=== PATIENT | female | born 1955 ===

== ENCOUNTER 2020-09-09 11:21 | Emergency (ER) | payer MEDICARE, OTHER ==
--- NOTE | 2020-09-09 11:30 | EDM.PDOC ---
ED HPI GENERAL MEDICAL PROBLEM - General Chief Complaint: Abdominal Pain Stated Complaint: EMS ARRIVAL Time Seen by Provider: 09/09/20 11:28 Source of Information: Reports: Patient History Limitations: Reports: No Limitations - History of Present Illness INITIAL COMMENTS - FREE TEXT/NARRATIVE: HISTORY AND PHYSICAL: History of present illness: Patient is a 64-year-old female who presents to the emergency room with complaints of low abdominal pain intermittently for the past 2 months. She states she has been trying to eliminate certain foods and activities to see if this would help eliminate her pain although has not been successful. This morning the pain is more persistent in the right lower quadrant and radiates to her flank area. She has also had some dysuria and constipation. States she had a small bowel movement yesterday. She also has some associated nausea without vomiting. Patient denies any fever, chills, headache, change in vision, syncope or near syncope. Denies any chest pain, shortness of breath or cough. Has not noted any blood in urine or stool. Patient has been eating and drinking appropriately. EMS was called to scene: She was given 100mcg of Fentyl PULMONARY PHYSICIAN. Past medical history of hypothyroidism, glaucoma, and gastric lapband. PCP: Dr Arredondo at [facility]. Review of systems: As per history of present illness and below otherwise all systems reviewed and negative. Past medical history: As per history of present illness and as reviewed below otherwise noncontributory. Surgical history: As per history of present illness and as reviewed below otherwise noncontributory. Social history: See social history for further information Family history: As per history of present illness and as reviewed below otherwise noncontributo ry. Physical exam: General: Well developed and well nourished. Alert and orientated x 3. Nontoxic in appearance and in no acute distress. Vital signs are stable and have been reviewed by me. Nursing notes were reviewed. HEENT: Atraumatic, normocephalic, pupils equal and reactive bilaterally, negative for conjunctival pallor or scleral icterus, mucous membranes moist, TMs normal bilaterally, throat clear, neck supple, nontender, trachea midline. No drooling or trismus noted. No meningeal signs. No hot potato voice noted. Lungs: Clear to auscultation, breath sounds equal bilaterally, chest nontender. Normal work of breathing, no accessory muscles used. Heart: S1S2, regular rate and rhythm without overt murmur Abdomen: Soft, nondistended, nontender. Negative for masses or hepatosplenomegal y. Negative for costovertebral tenderness. Pelvis: Stable nontender. Skin: Intact, warm, dry. No lesions or rashes noted. Hematologic: No petechiae or purpra. Mucosa appropriate color and normal nail bed color and refill. Extremities: Atraumatic, moves all extremities per self without difficulty or deficits, negative for cords or calf pain. Neurovascular unremarkable. Neuro: Awake, alert, oriented. Cranial nerves II through XII unremarkable. Cerebellum unremarkable. Motor and sensory unremarkable throughout. Exam nonfocal. Psychiatric: Mood and affect are appropriate. Normal thought process. Answering questions appropriately. Notes: Lab work is unremarkable with the exception of small occult blood and 1-[address] shows a smoothly marginated low-density mass in the pelvis on the right measuring 10.9 x 9.6 x 9.3 centimeters. This is probably ovarian in origin and likely neoplastic. Right-sided obstructive uropathy due to a 7 millimeter calculus at the right ureterovesical junction. There also a intrarenal calculi on the left which are nonobstructive. There is perinephric and periureteric stranding probably due to fornix rupture. Lap band. Hiatal hernia. No acute appearing GI finding. The radiologist called and recommending the ultrasound for further characterization of pelvic mass. Patient was informed of this finding and is agreeable. Ultrasound shows a large 10 cm simple cyst in the right adnexa. No specific features of this cyst to suggest malignancy. Borderline thickened endometrium for a postmenopausal patient. Ovaries are not well visualized. I spoke with Dr Hahn, urologist about this case - he is currently out of the office until 09/28/20. Spoke with Dr Uriostegui, urology at [facility] in [place] -who states this patient is stable enough to be seen as an outpatient. She states the patient can call her office and set up an appointment to be seen. I called and set up a follow up appointment for this patient on 09/14/2020 at 9:15am with Dr Uriostegui at [facility]. I have spoken with the patient/caregiver and discussed today's findings, in addition to providing specific details for plan of care. Reassessment at the time of disposition demonstrates that the patient is in no acute distress. The patient is stable for discharge, counseling was provided and we discussed in great detail signs and symptoms that would prompt them to return to the Emerg ency Department. Medication, follow up and supportive care measures were reviewed and discussed. Voices understanding and is agreeable to plan of care. Denies any further questions or concerns at this time. Diagnostics: CBC, CMP, Lipase, UA Therapeutics: IV fluids, Zofran Prescription: Tramadol Impression: Hydronephrosis Kidney Stone, right Ovarian cyst, right Plan: 1. Today your CT shows a right sided kidney stone which will need to be followed by Urology. We have made you an appointment for 09/14/2020 at 9:15am with Dr Uriostegui at [facility] (located in the [facility]). 2. Alternate Tyenol and Ibuprofen as needed for pain. Tramadol as needed for moderate/severe pain. 3. Also, you have a large ovarian cyst that needs to be followed up with by your primary care provider or OBGYN. 4. We encourage you to follow up with UROLOGY. If your symptoms should worsen, new symptoms develop or any of the signs and symptoms we discussed should arise please return to the emergency room or call 911 (if needed). Definitive disposition and diagnosis as appropriate pending reevaluation and review of above. Abdominal Pain Pain Score (Numeric/FACES): 4 - Related Data Allergies Allergy/AdvReac Type Severity Reaction Status Date / Time codeine Allergy Facial Verified 09/09/20 11:34 Swelling MSG Allergy Facial Uncoded 09/09/20 11:34 Swelling Home Meds: Home Meds Dorzolamide HCl [Trusopt] 1 drop EYEBOTH BID 08/08/19 [History] Latanoprost/Pf [Latanoprost 0.005% Eye Drop] 1 drop EYEBOTH BEDTIME 08/08/19 [History] Levothyroxine Sodium [Synthroid] 100 mcg PO QAM 08/08/19 [History] Phentermine HCl 30 mg PO ACBREAKFAST 08/08/19 [History] traMADol [Ultram] 50 mg PO Q4H PRN #15 tab 09/09/20 [Rx] Past Medical History HEENT History: Reports: Glaucoma, Other (See Below) Other HEENT History: wears glasses Musculoskeletal History: Reports: Fracture Other Musculoskeletal History: hx of fx left arm and left ankle Endocrine/Metabolic History: Reports: Hypothyroidism, Obesity/BMI 30+ Oncologic (Cancer) History: Reports: Malignant Melanoma - Past Surgical History Head Surgeries/Procedures: Reports: None GI Surgical History: Reports: Bariatric Procedure Other GI Surgeries/Procedures: has a gastric band Female Surgical History: Reports: Tubal Ligation Oncologic Surgical History: Reports: Other (See Below) Other Oncologic Surgeries/Procedures: excision of melanoma from right upper arm Dermatological Surgical History: Reports: Skin Biopsy ED ROS GENERAL - Review of Systems Review Of Systems: Comprehensive ROS is negative, except as noted in HPI. ED EXAM, GI/ABD - Physical Exam Exam: See Below (See dictation) Course - Vital Signs Last Recorded V/S: Last Vital Signs Temp 98.1 F 09/09/20 11:25 Pulse 76 09/09/20 15:32 Resp 18 09/09/20 15:32 BP 129/87 09/09/20 15:32 Pulse Ox 97 09/09/20 15:32 - Orders/Labs/Meds Labs: Laboratory Tests 09/09/20 09/09/20 09/09/20 Range/Units 11:30 11:30 12:56 WBC 9.66 (4.0-11.0) K/uL RBC 4.55 (4.30-5.90) M/uL Hgb 13.8 (12.0-16.0) g/dL Hct 41.4 (36.0-46.0) % MCV 91.0 (80.0-98.0) fL MCH 30.3 (27.0-32.0) pg MCHC 33.3 (31.0-37.0) g/dL RDW Std Deviation 44.7 (28.0-62.0) fl RDW Coeff of Raulito 13 (11.0-15.0) % Plt Count 218 (150-400) K/uL MPV 10.50 (7.40-12.00) fL Neut % (Auto) 78.8 (48.0-80.0) % Lymph % (Auto) 9.4 L (16.0-40.0) % [place] % (Auto) 10.2 (0.0-15.0) % Eos % (Auto) 1.4 (0.0-7.0) % Baso % (Auto) 0.2 (0.0-1.5) % Neut # (Auto) 7.6 H (1.4-5.7) K/uL Lymph # (Auto) 0.9 (0.6-2.4) K/uL [place] # (Auto) 1.0 H (0.0-0.8) K/uL Eos # (Auto) 0.1 (0.0-0.7) K/uL Baso # (Auto) 0.0 (0.0-0.1) K/uL Nucleated RBC % 0.0 /100WBC Nucleated RBCs # 0 K/uL Sodium 138 (136-145) mmol/L Potassium 3.7 (3.5-5.1) mmol/L Chloride 103 (98-107) mmol/L Carbon Dioxide 23.3 (21.0-32.0) mmol/L BUN 18 (7.0-18.0) mg/dL Creatinine 0.8 (0.6-1.0) mg/dL Est Cr Clr Drug Dosing 59.73 mL/min Estimated GFR (MDRD) > 60.0 ml/min Glucose 135 H (74-106) mg/dL Calcium 10.2 H (8.5-10.1) mg/dL Total Bilirubin 0.6 (0.2-1.0) mg/dL AST 26 (15-37) IU/L ALT 32 (14-63) IU/L Alkaline Phosphatase 56 (46-116) U/L Total Protein 7.4 (6.4-8.2) g/dL Albumin 3.9 (3.4-5.0) g/dL Globulin 3.5 (2.6-4.0) g/dL Albumin/Globulin Ratio 1.1 (0.9-1.6) Lipase 88 (73-393) U/L Urine Color YELLOW Urine Appearance CLEAR Urine pH 6.0 (5.0-8.0) Ur Specific [place] 1.025 (1.001-1.035) Urine Protein 30 H (NEGATIVE) mg/dL Urine Glucose (UA) NEGATIVE (NEGATIVE) mg/dL Urine Ketones 40 H (NEGATIVE) mg/dL Urine Occult Blood SMALL H (NEGATIVE) Urine Nitrite NEGATIVE (NEGATIVE) Urine Bilirubin NEGATIVE (NEGATIVE) Urine Urobilinogen 0.2 (<2.0) EU/dL Ur Leukocyte Esterase NEGATIVE (NEGATIVE) Urine RBC 1-2 (0-2/HPF) Urine WBC 0-1 (0-5/HPF) Ur Epithelial Cells FEW (NONE-FEW) Urine Bacteria RARE (NEGATIVE) Meds: Medications Discontinued Medications Generic Name Dose Route Start Last Admin Trade Name Freq PRN Reason Stop Dose Admin Sodium Chloride 1,000 mls @ 999 mls/hr 09/09/20 11:26 09/09/20 11:36 Normal Saline IV 09/09/20 12:26 125 mls/hr STAT ONE Infusion Iopamidol 100 ml 09/09/20 12:50 09/09/20 13:13 Isovue-370 (76%) IVPUSH 09/09/20 12:51 100 ml ONETIME STA Administration Ketorolac Tromethamine 15 mg 09/09/20 11:26 09/09/20 11:37 Toradol IVPUSH 09/09/20 11:27 Not Given NOW STA Ketorolac Tromethamine 30 mg 09/09/20 12:23 09/09/20 13:00 Toradol IVPUSH 09/09/20 12:24 30 mg ONETIME ONE Administration Ondansetron HCl 4 mg 09/09/20 11:26 09/09/20 12:23 Zofran IVPUSH 09/09/20 11:27 Not Given ONETIME ONE Departure - Departure Time of Disposition: 15:04 Disposition: Home, Self-Care 01 Clinical Impression: Kidney stone on right side Ovarian cyst Qualifiers: Laterality: right Qualified Code(s): N83.201 - Unspecified ovarian cyst, right side Hydronephrosis Qualifiers: Hydronephrosis type: with renal calculous obstruction Qualified Code(s): N13.2 - Hydronephrosis with renal and ureteral calculous obstruction - Discharge Information Prescriptions: traMADol [Ultram] 50 mg PO Q4H PRN #15 tab PRN Reason: Pain Instructions: Kidney Stones, [id number] Referrals: Sudha Arredondo MD [Primary Care Provider] - Forms: ED Department Discharge Additional Instructions: The following information is given to patients seen in the emergency department who are being discharged to home. This information is to outline your options for follow-up care. We provide all patients seen in our emergency department with a follow-up referral. The need for follow-up, as well as the timing and circumstances, are variable depending upon the specifics of your emergency department visit. If you don't have a primary care physician on staff, we will provide you with a referral. We always advise you to contact your personal physician following an emergency department visit to inform them of the circumstance of the visit and for follow-up with them and/or the need for any referrals to a consulting specialist. The emergency department will also refer you to a specialist when appropriate. This referral assures that you have the opportunity for follow-up care with a specialist. All of these measure are taken in an effort to provide you with optimal care, which includes your follow-up. Under all circumstances we always encourage you to contact your private physician who remains a resource for coordinating your care. When calling for follow-up care, please make the office aware that this follow-up is from your recent emergency room visit. If for any reason you are refused follow-up, please contact the [facility] Emergency Department at and asked to speak to the emergency department charge nurse. Dr Jess Uriostegui : UROLOGY [phone] [facility] [place] [address] [address] Thank you for choosing the [facility] emergency department in [place] for your medical needs today. It was a pleasure caring for you. Today you were seen in the emergency department for abdominal pain 1. Today your CT shows a right sided kidney stone which will need to be followed by Urology. We have made you an appointment for 09/14/2020 at 9:15am with Dr Uriostegui at [facility] (located in the [facility]). 2. Alternate Tyenol and Ibuprofen as needed for pain. Tramadol as needed for moderate/severe pain. 3. Also, you have a large ovarian cyst that needs to be followed up with by your primary care provider or OBGYN. 4. We encourage you to follow up with UROLOGY. If your symptoms should worsen, new symptoms develop or any of the signs and symptoms we discussed should arise please return to the emergency room or call 911 (if needed). Sepsis Event Note (ED) - Focused Exam Vital Signs: Vital Signs Temp Pulse Resp BP Pulse Ox 09/09/20 15:32 76 18 129/87 97 09/09/20 13:30 59 L 18 130/76 95 09/09/20 13:03 79 17 152/87 H 94 L 09/09/20 12:01 65 17 141/68 H 96 09/09/20 11:25 98.1 F 83 18 144/68 H 98
[2020-09-09] MEDS: Sodium Chloride 0.9% 1,000 ML IV ONE (11:33)
[2020-09-09] MEDS: Ketorolac 15 MG/ML SDV IVPUSH STA (11:37)
[2020-09-09 11:56] LABS: BLOOD UREA NITROGEN,BUN 18 mg/dL (7.0-18.0); CARBON DIOXIDE,CO2 23.3 mmol/L (21.0-32.0); CHLORIDE,CL 103 mmol/L (98-107); GLUCOSE RANDOM 135 mg/dL (74-106); LIPASE 88 U/L (73-393); POTASSIUM,K 3.7 mmol/L (3.5-5.1); SODIUM,NA 138 mmol/L (136-145)
[2020-09-09] MEDS: Ondansetron 4 MG/2 ML SDV IVPUSH ONE (12:23)
[2020-09-09] MEDS: Ketorolac 30 MG/ML SDV IVPUSH ONE (13:00)
[2020-09-09] MEDS: Iopamidol 755 Mg/ML 100 ML Bottle IVPUSH STA (13:13)
--- NOTE | 2020-09-09 13:25 | CT ---
INDICATION: Right lower quadrant abdominal pain COMPARISON: There are no prior studies for comparison TECHNIQUE: CT examination of the abdomen and pelvis was performed following the uneventful intravenous administration of 100 cc of Isovue 3 7. Thin section axial images were obtained from the lung bases through the pubic symphysis. Oral contrast was not administered. Please note that all CT scans at this facility use dose modulation, iterative reconstruction, and/or weight-based dosing when appropriate to reduce radiation dose to as low as reasonably achievable. FINDINGS: LUNG BASES: Linear opacities at the lung bases are likely related to atelectasis. The heart size is normal.There is a hiatal hernia. LIVER/BILIARY SYSTEM:The liver is normal in size and configuration. There is no focal mass and there is no intra- or extra hepatic biliary ductal dilatation.The gall bladder appears normal. ADRENALS: Normal KIDNEYS, URETERS and BLADDER:There are no intrarenal calculi on the right. There are intrarenal calculi on the left. There is right-sided hydronephrosis and right hydroureter, severe. This is due to a calculus at the right ureterovesical junction measuring 7 millimeters. There is perinephric and periureteric stranding probably due to fornix rupture. No calculi within the bladder. SPLEEN:Normal appearance. PANCREAS: Appears normal. RETROPERITONEUM and MESENTERY: There is no mass, adenopathy or aortic aneurysm. Atherosclerotic vascular calcification GASTROINTESTINAL SYSTEM: There is no evidence of diverticulitis, colitis, mechanical obstruction, or appendicitis. The small bowel as visualized appears normal.Diverticulosis. There is a lap band and a small hiatal hernia. PELVIS: There is a mass anterior to the uterus and to the right of the midline sitting on and deforming the contour of the bladder. This is low density and measures 10.9 x 9.6 by 9.3 centimeters. This is probably ovarian in origin and is likely right ovarian in origin. While this is homogeneously low density, an ultrasound is recommended to assess for internal architecture..This is likely neoplastic. OSSEOUS STRUCTURES and ABDOMINAL WALL: Degenerative changes without fracture or destructive process. No significant anterior abdominal wall defects. OTHER: No free fluid or free air. IMPRESSION: 1. There is a smoothly marginated low-density mass in the pelvis on the right measuring 10.9 x 9.6 x 9.3 centimeters. This is probably ovarian in origin and likely neoplastic. Sonography is advised for further characterization. 2. Right-sided obstructive uropathy due to a 7 millimeter calculus at the right ureterovesical junction. There also a intrarenal calculi on the left which are nonobstructive. 3. Lap band. Hiatal hernia. No acute appearing GI finding. 4. Discussed with Dr. Orta at 1:20 p.m. on September 09, [address] Please note that all [address] scans at this facility use dose modulation, iterative reconstruction, and/or weight-based dosing when appropriate to reduce radiation dose to as low as reasonably achievable. Dictated by Stoney Pak MD @ Sep 09 2020 1:10PM Signed by Dr. Stoney Pak @ Sep 09 2020 1:23PM
--- NOTE | 2020-09-09 14:34 | US ---
INDICATION: Pelvic mass TECHNIQUE: Ultrasound pelvis transabdominal. COMPARISON: CT abdomen pelvis September 09, 2020 FINDINGS: Uterus: 7 x 5 x 3 cm. Normal echotexture of the myometrium. No masses. Endometrium: Endometrial thickness measures 5 mm. No sign of endometrial mass or fluid. Ovaries are not clearly visualized. Large simple cyst in the right adnexa measures 10 cm. No soft tissue component or abnormal color Doppler blood flow within this cyst. No adnexal lesions. Cul-de-sac: No significant free fluid. IMPRESSION: 1. Large 10 cm simple cyst in the right adnexa. No specific features of this cyst to suggest malignancy. 2. Borderline thickened endometrium for a postmenopausal patient. 3. Ovaries are not well visualized. Dictated by Khanh Castaneda MD @ Sep 09 2020 2:26PM Signed by Dr. Khanh Castaneda @ Sep 09 2020 2:31PM
== END 2020-09-09 15:43 | disposition home or self-care (01) ==
LOC: MW.ED 11:21
DX: N83.201 Unspecified ovarian cyst, right side (principal); N13.2 Hydronephrosis with renal and ureteral calculous obstruction; E03.9 Hypothyroidism, unspecified; E66.9 Obesity, unspecified; Z68.26 Body mass index [BMI] 26.0-26.9, adult; Z88.5 Allergy status to narcotic agent
CPT/HCPCS: 36415; 74177; 76856; 80053; 81001; 83690; 85025; 99284; J1885; J7030; Q9967; 96374